=== PATIENT | female | born 1960 | race Caucasian/White ===

== ENCOUNTER 2018-07-27 12:12 | Outpatient (CLI) ==
--- NOTE | 2018-07-27 13:41 | DI ---
EXAM: Four views of the left knee. History: Left knee pain. Findings: No acute fracture or dislocation. No abnormal calcifications or radiopaque foreign bodies . Mild tricompartmental joint space narrowing with small osteophytes. Impression: 1. No acute osseous abnormality. 2. Mild tricompartmental osteoarthritis
--- NOTE | 2018-07-27 13:42 | DI ---
EXAM: Four views of the right knee. History: Right knee pain. Findings: No acute fracture or dislocation. No abnormal calcifications or radiopaque foreign bodies . Mild tricompartmental joint space narrowing with tiny osteophytes. Impression: 1. No acute osseous abnormality. 2. Mild tricompartmental osteoarthritis
--- NOTE | 2018-07-27 13:43 | DI ---
EXAM: Three views of the left ankle. History: Left ankle pain. Findings: No acute fracture or dislocation. No abnormal calcifications or radiopaque foreign bodies . Joint spaces are preserved. Impression: Unremarkable exam
--- NOTE | 2018-07-27 13:45 | DI ---
EXAM: RIGHT ANKLE THREE VIEWS HISTORY: Ankle pain FINDINGS / IMPRESSION: No comparison. There is a corticated oval shaped 2.5 mm bone density seen i mmediately inferior to the medial malleolus with no noticeable superimposed soft tissue swelling. Th is may represent an old avulsion fracture fragment or accessory ossicle. Less likely an acute avulsi on fracture, correlate clinically. No acute fracture or joint effusion. General bone density is nor mal.
== END 2018-07-27 12:13 | disposition home or self-care (01) ==
LOC: RAD 12:12
PROVIDERS: ATTEND Internal Medicine
DX: M25.562 Pain in left knee (principal); M25.561 Pain in right knee; M25.571 Pain in right ankle and joints of right foot; M25.572 Pain in left ankle and joints of left foot